=== PATIENT | female | born 1945 | race Caucasian/White ===

== ENCOUNTER 2020-04-27 13:20 | Outpatient (CLI) | payer MEDICARE, OTHER ==
[~2020-04-27] VITALS: Ht 172.7 cm; Wt 59.4 kg
[2020-04-27 14:11] VITALS: BP 137/98
--- NOTE | 2020-04-27 16:00 | Consultation ---
DATE OF CONSULTATION: 04/27/2020 GASTROENTEROLOGY CONSULTATION CONSULTING PHYSICIAN: Pavel Palomino MD. REFERRING PHYSICIAN: Bimal Guan MD. CHIEF COMPLAINT: Neck pain, headache, abdominal pain, history of colonic polyps, constipation. PAST MEDICAL HISTORY: 1. Brain tumor. 2. Eye tumor. 3. Anemia. 4. History of colonic polyps in 2015. PAST SURGICAL HISTORY: Brain tumor surgery, eye surgery. MEDICATIONS: Please see medication reconciliation list. FAMILY HISTORY: Noncontributory. SOCIAL HISTORY: The patient denies any tobacco, alcohol, or drug abuse. ALLERGIES: To Celebrex, penicillin, and gabapentin. REVIEW OF SYSTEMS: Positive for severe neck pain, headache, abdominal pain. PHYSICAL EXAMINATION: VITAL SIGNS: Temperature 97.8, blood pressure 137/98, pulse 60, respirations 20. Height is 5 feet 8 inches, weight is 131. HEENT: Normocephalic and atraumatic. Sclerae are anicteric. NECK: Supple. No evidence of obvious lymphadenopathy. CARDIOVASCULAR: Regular rate and rhythm. Plus S1, S2. LUNGS: Clear to auscultation bilaterally. ABDOMEN: Positive bowel sounds. Soft and nontender. No rebound. No guarding. No peritoneal sign. EXTREMITIES: No cyanosis, no clubbing, no edema. ASSESSMENT AND PLAN: This is a 74-year-old female with brain tumor, status post spine surgery. According to her, three of the vertebrae removed. She is in a lot of pain, not responding to gabapentin and Celebrex. Apparently, she was getting some codeine and was working for her, but she ran out. She also needs a colonoscopy given last colonoscopy was over 5 years ago and she was told she need to repeat colonoscopy in three years. Also needs an endoscopy for abdominal pain and GERD. Our plan will be to give her [place] 5 mg #30 for pain management. She was told to take every 12 hours as needed. She states she has [id number] laxatives that she will take if she gets constipated. We are going to go ahead and schedule for endoscopy and colonoscopy. I want to thank Dr. Guan for this kind referral. Pavel Vosoghi, M.D. DR: MANDY JOB#: [id number] CC: Bimal Guan M.D.; Fax#: [phone]
== END 2020-04-27 15:20 | disposition home or self-care (01) ==
LOC: PAN 13:20
DX: R10.9 Unspecified abdominal pain (principal); K59.00 Constipation, unspecified; R51.9 Headache, unspecified; M54.2 Cervicalgia; Z86.010 Personal history of colon polyps; Z88.0 Allergy status to penicillin; Z88.8 Allergy status to other drugs, medicaments and biological substances
CPT/HCPCS: G0463